=== PATIENT | female | born 1985 | race Two or more races ===

== ENCOUNTER 2018-04-29 11:34 | Emergency (ER) | payer OTHER ==
[2018-04-29] MEDS ORDERED: LIDOCAINE VISCOUS 2% 15 ML UDC MM STA (11:59)
[2018-04-29] MEDS ORDERED: MAG HYDROX/AL HYDROX/SIMETH 30 ML UDC PO STA (11:59)
--- NOTE | 2018-04-29 12:41 | ED Physician Documentation ---
PD HPI CHEST PAIN - Stated complaint Stated Complaint: CHEST PX - Chief complaint Chief Complaint: Cardiac - History obtained from History obtained from: Patient - History of Present Illness Timing - onset: Yesterday Timing - details: Waxing and waning Quality: Pain Location: Substernal Worsened by: Inspiration Associated symptoms: No: Shortness of air, Nausea, Vomiting Similar symptoms before: Has not had sx before - Additional information Additional information: Patient is an otherwise healthy 32-year-old female who presents with substernal chest pain that started yesterday and has been waxing and waning since that time. It is worse with inspiratory effort. She denies fever, shortness of breath, cough, nausea or vomiting. She denies history of similar symptoms in the past. She admits to drinking large quantities of coffee. She does not smoke cigarettes. She has no history of diabetes, hypertension, or family history of early MT. Review of Systems Constitutional: denies: Fever, Fatigue Nose: denies: Congestion Throat: denies: Sore throat Cardiac: reports: Chest pain / pressure. 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, Other - Present Medications Home Medications: Ambulatory Orders Medication Instructions Recorded Confirmed Levothyroxine [Synthroid] 25 mcg PO QDAC 04/26/14 01/14/15 Omeprazole [PriLOSEC] 20 mg PO DAILY #14 capsule 04/29/18 - Allergies Allergies/Adverse Reactions: Allergies Allergy/AdvReac Type Severity Reaction Status Date / Time No Known Drug Allergies Allergy Verified 04/29/18 11:42 - Social History Does the pt smoke?: No Smoking Status: Never smoker Does the pt drink ETOH?: Yes Does the pt have substance abuse?: No - Immunizations Immunizations are current?: Yes - POLST Patient has POLST: No PD ED PE NORMAL - Vitals Vital signs reviewed: Yes (Initially hypertensive.) - General General: Alert and oriented X 3, Well developed/nourished, Other (Overweight.) - HEENT HEENT: Atraumatic, Pharynx benign - Neck Neck: No adenopathy, No JVD - Cardiac Cardiac: RRR, No murmur - Respiratory Respiratory: No respiratory distress, Clear bilaterally, Other (No chest wall tenderness to palpation.) - Abdomen Abdomen: Soft, Non tender - Back Back: No CVA TTP - Derm Derm: No rash - Extremities Extremities: No edema, No calf tenderness / cord - Neuro Neuro: Alert and oriented X 3, No motor deficit, Normal speech Results - Vitals Vitals: Vital Signs - 24 hr 04/29/18 11:38 Temperature 36.9 C Heart Rate 74 Respiratory 16 Rate Blood Pressure 156/91 H O2 Saturation 100 Oxygen O2 Source Room air - EKG (time done) 11:44 Rate: Rate (enter#) (72) Rhythm: NSR [place]: Normal Intervals: Normal [place] QRS: Normal Ischemia: Normal ST segments Computer interpretation: Agree with computer PD MEDICAL DECISION MAKING - ED course Complexity details: reviewed results, re-evaluated patient, considered differential, d/w patient, d/w family ED course: The patient's presentation is most consistent with gastroesophageal reflux. I doubt cardiac etiology for her substernal chest pain, and her EKG is completely normal. Her presentation does not suggest pneumothorax, pneumonia, and I doubt pulmonary embolus. Treatment in the emergency department included administration of GI cocktail, which diminished the patient's pain although it did not completely relieve it. She is being discharged with prescription for Prilosec. I discussed with her and her the diagnosis, symptomatic treatment and outpatient follow-up, as well as potentially worrisome signs or symptoms that should prompt reevaluation in the emergency department. - Sepsis Event Vital Signs: Vital Signs - 24 hr 04/29/18 11:38 Temperature 36.9 C Heart Rate 74 Respiratory 16 Rate Blood Pressure 156/91 H O2 Saturation 100 Oxygen O2 Source Room air Departure - Departure Disposition: 01 Home, Self Care Clinical Impression: Gastroesophageal reflux disease Qualifiers: Esophagitis presence: esophagitis presence not specified Qualified Code(s): K21.9 - Gastro-esophageal reflux disease without esophagitis Condition: Stable Instructions: ED GERD Follow-Up: Warren Collins MD [Physician No Access] - Prescriptions: Omeprazole [PriLOSEC] 20 mg PO DAILY #14 capsule Comments: Minimize coffee, shant, alcohol. Take Prilosec daily as prescribed. You can use liquid antacid, such as Maalox or Mylanta if needed for recurrent chest discomfort. Follow up with your primary physician within 2 weeks. Call to schedule appointment. Return to the emergency department if you develop increasing chest pain, shortness of breath, persistent vomiting, or otherwise worsening symptoms
[2018-04-29 12:54] VITALS: BP 130/81
== END 2018-04-29 12:54 | disposition home or self-care (01) ==
LOC: ED 11:34
DX: K21.9 Gastro-esophageal reflux disease without esophagitis (principal)
CPT/HCPCS: 93005; 99283; A9270

== ENCOUNTER 2018-06-01 22:31 | Emergency (ER) | payer OTHER ==
[2018-06-01] MEDS ORDERED: KETOROLAC 60 MG/2 ML VIAL IVP STA (22:55)
[2018-06-01 22:59] LABS: BILIRUBIN,URINE NEGATIVE (NEGATIVE); GLUCOSE, URINE (UA) NEGATIVE (NEGATIVE); KETONES,URINE (UA) TRACE mg/dL (NEGATIVE); LEUKOCYTE ESTERASE, URINE NEGATIVE (NEGATIVE); NITRITE,URINE NEGATIVE (NEGATIVE); OCCULT BLOOD,URINE NEGATIVE (NEGATIVE); PROTEIN,URINE NEGATIVE (NEGATIVE); UROBILINOGEN,URINE 0.2 (NORMAL) E.U./dL (NORMAL)
[2018-06-01 23:00] LABS: CLARITY,URINE CLEAR (CLEAR)
--- NOTE | 2018-06-01 23:00 | ED Physician Documentation ---
PD HPI ABD PAIN - Stated complaint Stated Complaint: LRQ ABD PX/NAUSEA - Chief complaint Chief Complaint: Abd Pain - History obtained from History obtained from: Patient - History of Present Illness Timing - onset: How many weeks ago (1) Timing - duration: Weeks (1) Timing - details: Gradual onset, Still present Pain level max: 8 Pain level now: 8 Quality: Aching, Pain Location: Other (R pelvic) Radiation: Other (non-radiating) Improved by: Laying still Worsened by: Moving, Palpation Associated symptoms: Nausea. No: Fever, Vomiting, Hematemesis, Diarrhea, Constipation, Melena, Hematochezia, Dysuria, Hematuria, Chest pain, Vaginal bleeding, Vaginal dc Similar symptoms before: Diagnosis (ovarian cyst) Recently seen: Clinic (seen in clinic recently and had a pelvic exam. States pain has started since then. LMP was 3 weeks ago.) Review of Systems Ten Systems: 10 systems reviewed and negative Constitutional: denies: Fever, Chills Ears: denies: Ear pain Nose: denies: Rhinorrhea / runny nose, Congestion Throat: denies: Sore throat Cardiac: denies: Chest pain / pressure Respiratory: denies: Cough, Wheezing GI: denies: Vomiting, Diarrhea Skin: denies: Rash Musculoskeletal: denies: Neck pain, Back pain Neurologic: denies: Focal weakness, Numbness, Headache PD PAST MEDICAL HISTORY - Past Medical History Cardiovascular: None Respiratory: None Endocrine/Autoimmune: HyPOthyroidism GI: None : None HEENT: None Psych: None Musculoskeletal: Other Derm: None - Past Surgical History Past Surgical History: Yes General: Appendectomy 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, 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, Other - Present Medications Home Medications: Ambulatory Orders Medication Instructions Recorded Confirmed Levothyroxine [Synthroid] 50 mcg PO QDAC 04/26/14 01/14/15 Omeprazole [PriLOSEC] 20 mg PO DAILY #14 capsule 04/29/18 Meloxicam [Mobic] 15 mg PO DAILY PRN #20 tablet 06/02/18 - Allergies Allergies/Adverse Reactions: Allergies Allergy/AdvReac Type Severity Reaction Status Date / Time No Known Drug Allergies Allergy Verified 06/01/18 22:41 - Social History Does the pt smoke?: No Smoking Status: Never smoker Does the pt drink ETOH?: Yes Does the pt have substance abuse?: No - Immunizations Immunizations are current?: Yes - POLST Patient has POLST: No PD ED PE NORMAL - Vitals Vital signs reviewed: Yes - General General: Alert and oriented X 3, No acute distress - HEENT HEENT: Moist mucous membranes - Neck Neck: Supple, no meningeal sign - Cardiac Cardiac: RRR, Strong equal pulses - Respiratory Respiratory: No respiratory distress, Clear bilaterally - Abdomen Abdomen: Soft, Non distended, Other (Tender palpation right lower quadrant. No peritoneal signs.) - Derm Derm: Warm and dry - Extremities Extremities: No edema, No calf tenderness / cord - Neuro Neuro: Alert and oriented X 3 - Psych Psych: Normal mood, Normal affect Results - Vitals Vitals: Vital Signs - 24 hr 06/01/18 22:36 Temperature 36.2 C L Heart Rate 91 Respiratory 18 Rate Blood Pressure 150/98 H O2 Saturation 97 Oxygen O2 Source Room air - Rads (name of study) pelvic US Radiology: Prelim report reviewed, EMP read contemporaneously, See rad report (Possible tiny endometrial cyst. Normal appearance of the ovaries.) PD MEDICAL DECISION MAKING - ED course Complexity details: reviewed results, re-evaluated patient, considered differential, d/w patient ED course: Patient is a 32-year-old female who presents to the emergency department with pelvic/abdominal pain. No acute laboratory findings. No acute findings to explain her symptoms on pelvic ultrasound. She is status post appendectomy. Pain controlled with Toradol. We discussed a pelvic examination, but she declines this at this time. She wants to give her pain a few days and see if it worsens or improves. If it worsens she will return. Patient counseled regarding signs and symptoms for which I believe and urgent re-evaluation would be necessary. Patient with good understanding of and agreement to plan and is comfortable going home at this time This document was made in part using voice recognition software. While efforts are made to proofread this document, sound alike and grammatical errors may occur. - Sepsis Event Vital Signs: Vital Signs - 24 hr 06/01/18 22:36 Temperature 36.2 C L Heart Rate 91 Respiratory 18 Rate Blood Pressure 150/98 H O2 Saturation 97 Oxygen O2 Source Room air Departure - Departure Disposition: 01 Home, Self Care Clinical Impression: Abdominal pain Condition: Good Instructions: ED Abdominal Pain Unkn Cause Follow-Up: NA SOMMERS [Primary Care Provider] - Within 1 week Prescriptions: Meloxicam [Mobic] 15 mg PO DAILY PRN #20 tablet PRN Reason: pain Comments: The cause of your symptoms is unclear today. Please follow-up with your doctor for further care. If you are not improving, you should return for repeat evaluation. You may need a pelvic examination with your doctor as well.
[2018-06-01 23:01] LABS: HCG UR QUAL NEGATIVE
[2018-06-01 23:18] LABS: BASOPHILS # (AUTO) 0.1 10^3/uL (0.0-0.1); BASOPHILS % (AUTO) 1.2 %; EOSINOPHILS # (AUTO) 0.1 10^3/uL (0.0-0.7); EOSINOPHILS % (AUTO) 1.4 %; HGB - HEMOGLOBIN 12.8 g/dL (12.0-16.0); LYMPHOCYTES % (AUTO) 30.1 %; MEAN CORPUSCULAR HEMOGLOBIN 29.9 pg (27.0-31.0); MEAN CORPUSCULAR VOLUME 87.8 fL (81.0-99.0); MEAN PLATELET VOLUME 10.6 fL (7.9-10.8); MONOCYTES # (AUTO) 0.8 10^3/uL (0.0-1.0); NEUTROPHILS # (AUTO) 5.9 10^3/uL (1.5-6.6); NEUTROPHILS % (AUTO) 59.3 %; PLT - PLATELET COUNT 202 10^3/uL (130-450); RED BLOOD COUNT 4.29 10^6/uL (4.20-5.40); RED CELL DISTRIBUTION WIDTH 13.4 % (12.0-15.0); WHITE BLOOD COUNT 9.9 x10^3/uL (4.8-10.8)
[2018-06-01 23:32] LABS: ALBUMIN 4.2 g/dL (3.2-5.5); ALBUMIN/GLOBULIN RATIO 1.1 (1.0-2.2); BILIRUBIN,TOTAL 0.6 mg/dL (0.2-1.0); CALCIUM 9.3 mg/dL (8.5-10.3); CREATININE 0.9 mg/dL (0.4-1.0); TOTAL PROTEIN 7.9 g/dL (6.7-8.2)
--- NOTE | 2018-06-02 00:07 | Ultrasound Report ---
Reason: pelvic pain, h/o ovarian cysts Procedure Date: 06/01/2018 Accession Number: [id number] / [id number] Procedure: US - Pelvic w/Transvag+Doppler Ltd CPT Code: FULL RESULT: EXAM: PELVIC ULTRASOUND EXAM DATE: 06/01/2018 11:24 PM. CLINICAL HISTORY: Pelvic pain, h/o ovarian cysts. COMPARISON: None. TECHNIQUE: Realtime transabdominal pelvic scan performed to identify the uterus and adnexa and as an overview of other pelvic structures, followed by transvaginal scan to provide greater detail of the uterus and adnexa, with static image documentation. FINDINGS: Uterus: 9.1 x 6.8 x 5.0 cm, volume 161 cc. Anteverted position. Normal overall size and echotexture. Masses: None. Endometrium: 6 mm. There is a possible endometrial cyst in the fundal endometrium, measuring 7 x 4 x 6 mm. Cervix: Unremarkable. Right Ovary: 2.9 x 2.5 x 1.4 cm, volume 5 cc. Normal echotexture and blood flow. Left Ovary: 2.8 x 2.5 x 2.1 cm, volume 7 cc. Normal echotexture and blood flow. Free Fluid: None. Other: None. IMPRESSION: Possible tiny endometrial cyst. Normal appearance of the ovaries. [facility]
[2018-06-02 00:28] VITALS: BP 125/90
== END 2018-06-02 00:40 | disposition home or self-care (01) ==
LOC: ED 22:31
DX: R10.9 Unspecified abdominal pain (principal)
CPT/HCPCS: 36415; 76830; 76856; 80053; 81001; 81003; 81025; 83690; 85025; 87086; 93976; 96374; 99283